=== PATIENT | female | born 1990 | race Caucasian/White ===

== ENCOUNTER → 2016-10-29 | Outpatient (CLI) | payer OTHER | LOC: RAD 07:24 | PROVIDERS: ATTEND Otolaryngology | DX: Z09 Encounter for follow-up examination after completed treatment for conditions other than malignant neoplasm (principal); J32.0 Chronic maxillary sinusitis; J32.2 Chronic ethmoidal sinusitis | CPT/HCPCS: 70486 ==

== ENCOUNTER 2016-11-05 12:31 | Emergency (ER) | payer SELFPAY ==
[2016-11-05] MEDS ORDERED: KETOROLAC TROMETHAMINE INJ/PF 30 MG/1 ML SDV IV ONE (13:11)
[2016-11-05] MEDS ORDERED: ONDANSETRON HCL INJ/PF 4 MG/2 ML SDV IV ONE (13:11)
[2016-11-05] MEDS ORDERED: NORMAL SALINE 1000 ML 1,000 ML IV ONE (13:12)
--- NOTE | 2016-11-05 13:18 | ER Document Report ---
ED Medical Screen (RME) - General Chief Complaint: Near Syncope Stated Complaint: SORE THROAT/VOMITING/HEAD PAIN Notes: I have briefly seen and evaluated this patient in my role as physician in triage. I have initiated orders based on this initial evaluation. Please see my colleague's documentation for complete history, physical, management, diagnosis , and ultimate disposition. My brief evaluation: Patient presents after syncopal episodes morning. She is febrile and states that last night she started feeling unwell. She was little nauseated and had a headache. This morning she woke up and was feeling very lightheaded and nauseated and had a sore throat. She indicates that she took some Motrin and the sore throat improved however she still felt lightheaded and she was walking across kitchen when she passed out. She does not think she hit her head. Since she does not have any worsening of the headache. She says that she feels sore all over but thinks that maybe she felt that way before she passed out. She has never had a syncopal episode before. She denies any chest pain or difficult to breathing. She does have a mild cough. Denies any history of asthma. She is generally healthy. On exam, the patient is alert and oriented in no acute distress vital signs are stable with the exception of tachycardia and fever. Chest is clear and equal bilaterally. Heart rate is tachycardic and rhythm is normal. No murmurs. There is bilateral tonsillar adenopathy with pharyngeal erythema. Patient does have tender cervical anterior nodes. Medical Decision making: Patient is tachycardic and febrile. We'll treat fever and body aches with Toradol and give IV fluids. We will check EKG, orthostatics, chest x-ray and basic labs due to syncopal episode. TRAVEL OUTSIDE OF THE [place] IN LAST 30 DAYS: No - Related Data Allergies/Adverse Reactions: Coconut * [Coconut] Allergy (Verified 11/05/16 13:04) Home Medications: Current Home Medications Escitalopram Oxalate [Lexapro] 20 mg PO DAILY 11/05/16 [History] Multivit with Calcium,Iron,Min [Multiple Vitamins For Women] 1 each PO DAILY [History] Pantoprazole Sodium [Protonix] 40 mg PO DAILY 11/05/16 [History] Past Medical History - Social History Chew tobacco use (# tins/day): No Frequency of alcohol use: None Drug Abuse: None - Past Medical History Cardiac Medical History: Denies: Hx Heart Attack, Hx Hypertension Pulmonary Medical History: Denies: Hx Asthma Neurological Medical History: Denies: Hx Cerebrovascular Accident, Hx Seizures Renal/ Medical History: Denies: Hx Peritoneal Dialysis GI Medical History: Reports: Hx Gastroesophageal Reflux Disease. Denies: Hx Hepatitis, Hx Hiatal Hernia, Hx Ulcer Infectious Medical History: Denies: Hx Hepatitis Past Surgical History: Reports: Hx Section. Denies: Hx Mastectomy, Hx Open Heart Surgery, Hx Pacemaker - Immunizations Hx Diphtheria, Pertussis, Tetanus Vaccination: Yes Physical Exam - Vital signs Vitals: Temp Pulse Resp BP Pulse Ox 101.5 F H 131 H 20 129/82 H 97 11/05/16 12:35 11/05/16 12:35 11/05/16 12:35 11/05/16 12:35 11/05/16 12:35 Course - Vital Signs Vital signs: Temp Pulse Resp BP Pulse Ox 101.5 F H 131 H 20 129/82 H 97 11/05/16 12:35 11/05/16 12:35 11/05/16 12:35 11/05/16 12:35 11/05/16 12:35
[2016-11-05 14:01] LABS: HEMATOCRIT 40.1 % (36.0-47.0); HEMOGLOBIN 13.3 g/dL (12.0-15.5); HGB HCT DIFFERENCE -0.2; MEAN CORPUSCULAR HGB CONC 33.2 g/dL (32.0-36.0); MEAN CORPUSCULAR VOLUME 84 fl (80-97); RED BLOOD COUNT 4.75 10^6/uL (3.72-5.28); RED CELL DISTRIBUTION WIDTH 15.1 % (11.5-14.0); WHITE BLOOD COUNT 21.6 10^3/uL (4.0-10.5)
[2016-11-05 14:09] LABS: ANION GAP 12 (5-19); BAND NEUTROPHILS % (MANUAL) 2 % (3-5); BASOPHILS % (MANUAL) 0 % (0-2); BLOOD UREA NITROGEN 9 mg/dL (7-20); CALCIUM 9.4 mg/dL (8.4-10.2); CARBON DIOXIDE 26 mmol/L (22-30); CHLORIDE 101 mmol/L (98-107); CREATININE RESULT 0.63 mg/dL (0.52-1.25); EOSINOPHILS % (MANUAL) 0 % (0-6); GLUCOSE 119 mg/dL (75-110); LYMPHOCYTES % (MANUAL) 4 % (13-45); POTASSIUM 3.9 mmol/L (3.6-5.0); SODIUM 138.9 mmol/L (137-145); TOTAL CELLS COUNTED 100
[2016-11-05 14:10] LABS: ANISOCYTOSIS SLIGHT; TOXIC GRANULATION SLIGHT
[2016-11-05 15:18] LABS: APPEARANCE,URINE SLIGHTLY-CLOUDY; BILIRUBIN,URINE NEGATIVE (NEGATIVE); GLUCOSE, URINE NEGATIVE (NEGATIVE); KETONES,URINE NEGATIVE (NEGATIVE); LEUKOCYTE ESTERASE,URINE NEGATIVE (NEGATIVE); NITRITE,URINE NEGATIVE (NEGATIVE); PROTEIN,URINE NEGATIVE (NEGATIVE); URINE SPECIFIC GRAVITY 1.012; UROBILINOGEN,URINE NEGATIVE mg/dL (<2.0)
[2016-11-05] MEDS ORDERED: PENICILLIN G BENZATHINE 1.2 MILLION UNIT/2 ML DISP.SYRIN IM ONE (15:32)
[2016-11-05] MEDS ORDERED: IBUPROFEN 800 MG TABLET PO ONE (15:33)
--- NOTE | 2016-11-05 15:41 | ER Document Report ---
ED General - General Chief Complaint: Near Syncope Stated Complaint: SORE THROAT/VOMITING/HEAD PAIN Mode of Arrival: Ambulatory Information source: Patient Notes: 26-year-old female presents with complaints of a sore throat fevers body aches since last night. Patient notes she was here with her daughter right upper respiratory infection last week who she may have gotten sick from being in the hospital. Patient denies any vomiting. Patient missed a mild sore throat notes she has been able to hydrate and has been urinating well with no difficulty TRAVEL OUTSIDE OF THE [place] IN LAST 30 DAYS: No - HPI Onset: Yesterday Onset/Duration: Sudden Quality of pain: Sharp Severity: Mild Pain Level: 1 Associated symptoms: Fever, Sore throat Exacerbated by: Denies Relieved by: Denies Similar symptoms previously: No Recently seen / treated by doctor: No - Related Data Allergies/Adverse Reactions: Coconut * [Coconut] Allergy (Verified 11/05/16 13:04) Home Medications: Current Home Medications Escitalopram Oxalate [Lexapro] 20 mg PO DAILY 11/05/16 [History] Multivit with Calcium,Iron,Min [Multiple Vitamins For Women] 1 each PO DAILY [History] Pantoprazole Sodium [Protonix] 40 mg PO DAILY 11/05/16 [History] Past Medical History - Social History Smoking Status: Never Smoker Cigarette use (# per day): No Chew tobacco use (# tins/day): No Smoking Education Provided: No Frequency of alcohol use: None Drug Abuse: None Family History: Reviewed & Not Pertinent Patient has suicidal ideation: No Patient has homicidal ideation: No - Past Medical History Cardiac Medical History: Denies: Hx Heart Attack, Hx Hypertension Pulmonary Medical History: Denies: Hx Asthma Neurological Medical History: Denies: Hx Cerebrovascular Accident, Hx Seizures Renal/ Medical History: Denies: Hx Peritoneal Dialysis GI Medical History: Reports: Hx Gastroesophageal Reflux Disease. Denies: Hx Hepatitis, Hx Hiatal Hernia, Hx Ulcer Infectious Medical History: Denies: Hx Hepatitis Past Surgical History: Reports: Hx Section. Denies: Hx Mastectomy, Hx Open Heart Surgery, Hx Pacemaker - Immunizations Hx Diphtheria, Pertussis, Tetanus Vaccination: Yes Review of Systems - Review of Systems Notes: REVIEW OF SYSTEMS: CONSTITUTIONAL : admits to fever EENT: admits to sore throat CARDIOVASCULAR: Denies chest pain. Denies palpitations or racing or irregular heart beat. Denies ankle edema. RESPIRATORY: Denies cough, cold, or chest congestion. Denies shortness of breath, difficulty breathing, or wheezing. GASTROINTESTINAL: Denies abdominal pain or distention. Denies nausea, vomiting , or diarrhea. Denies blood in vomitus, stools, or per rectum. Denies black, tarry stools. Denies constipation. GENITOURINARY: Denies difficulty urinating, painful urination, burning, frequency, blood in urine, or discharge. FEMALE GENITOURINARY: Denies vaginal bleeding, heavy or abnormal periods, irregular periods. Denies vaginal discharge or odor. MUSCULOSKELETAL: Denies back or neck pain or stiffness. Denies joint pain or swelling. SKIN: Denies rash, lesions or sores. HEMATOLOGIC : Denies easy bruising or bleeding. LYMPHATIC: Denies swollen, enlarged glands. NEUROLOGICAL: Denies confusion or altered mental status. Denies passing out or loss of consciousness. Denies dizziness or lightheadedness. Denies headache. Denies weakness or paralysis or loss of use of either side. Denies problems with gait or speech. Denies sensory loss, numbness, or tingling. Denies seizures. PSYCHIATRIC: Denies anxiety or stress. Denies depression, suicidal ideation, or homicidal ideation. ALL OTHER SYSTEMS REVIEWED AND NEGATIVE. Dictation was performed using [employer] voice recognition software PHYSICAL EXAMINATION: GENERAL: Well-appearing, well-nourished and in no acute distress. febrile HEAD: Atraumatic, normocephalic. EYES: Pupils equal round and reactive to light, extraocular movements intact, conjunctiva are normal. ENT: Nares patent, oropharynx clear without exudates. Moist mucous membranes. NECK: bilateral tonsillar enlargement, exudative with ulcers , uvula midline, airway patent LUNGS: Breath sounds clear to auscultation bilaterally and equal. No wheezes rales or rhonchi. HEART: tachycardic ABDOMEN: Soft, nontender, nondistended abdomen. No guarding, no rebound. No masses appreciated. Female : deferred Musculoskeletal: Normal range of motion, no pitting or edema. No cyanosis. NEUROLOGICAL: Cranial nerves grossly intact. Normal speech, normal gait. Normal sensory, motor exams PSYCH: Normal mood, normal affect. SKIN: Warm, Dry, normal turgor, no rashes or lesions noted. Physical Exam - Vital signs Vitals: Temp Pulse Resp BP Pulse Ox 101.5 F H 131 H 20 129/82 H 97 11/05/16 12:35 11/05/16 12:35 11/05/16 12:35 11/05/16 12:35 11/05/16 12:35 Course - Re-evaluation Re-evalutation: 11/05/16 15:45 pt noted to be septic secondary to strep pharyngitis. will treat with antibiotics, otherwise pt treated for fever and well appearing. pt is not dehydrated. After performing a Medical Screening Examination, I estimate there is LOW risk for ACUTE CORONARY SYNDROME, RESPIRATORY FAILURE, SEPSIS OR MENINGITIS, thus I consider the discharge disposition reasonable. I have reevaluated this patient multiple times and no significant life threatening changes are noted. The patient and I have discussed the diagnosis and risks, and we agree with discharging home with close follow-up. We also discussed returning to the Emergency Department immediately if new or worsening symptoms occur. We have discussed the symptoms which are most concerning (e.g., changing or worsening pain, trouble swallowing or breathing, neck stiffness, fever) that necessitate immediate return. - Vital Signs Vital signs: Temp Pulse Resp BP Pulse Ox 101.5 F H 131 H 20 129/82 H 97 11/05/16 12:35 11/05/16 12:35 11/05/16 12:35 11/05/16 12:35 11/05/16 12:35 - Laboratory Result Diagrams: 11/05/16 13:20 11/05/16 13:20 Laboratory results interpreted by me: 11/05/16 11/05/16 11/05/16 13:20 13:20 13:20 WBC 21.6 H RDW 15.1 H Seg Neuts % (Manual) 86 H Band Neutrophils % 2 L Lymphocytes % (Manual) 4 L Abs Neuts (Manual) 19.0 H Abs Monocytes (Manual) 1.5 H Glucose 119 H Urine Blood MODERATE H Discharge - Discharge Clinical Impression: Strep pharyngitis, Tachycardia Fever Qualifiers: Fever type: unspecified Qualified Code(s): R50.9 - Fever, unspecified Condition: Stable Disposition: HOME, SELF-CARE Instructions: Strep Throat ([facility]) Additional Instructions: Follow up with your physician tomorrow for further care or return to the ED IMMEDIATELY if symptoms worsen or new concerns occur. If you cannot afford to follow up with your primary care physician a list of low cost clinics have been provided at the end of your discharge papers as well. Prescriptions: Prednisone [Deltasone 20 mg Tablet] 3 tab PO DAILY 5 Days
[2016-11-05 16:05] VITALS: BP 128/76
--- NOTE | 2016-11-05 16:24 | EKG REPORT ---
SEVERITY:- NORMAL ECG - SINUS RHYTHM : Confirmed by: Jonn Santacruz MD 05-Nov-2016 16:24:27
== END 2016-11-05 15:57 | disposition home or self-care (01) ==
LOC: ER 12:31
DX: J02.0 Streptococcal pharyngitis (principal); R00.0 Tachycardia, unspecified; R50.9 Fever, unspecified; M79.1 Myalgia; R51 Headache; R11.10 Vomiting, unspecified; R55 Syncope and collapse
CPT/HCPCS: 99284; 96372; 36415; 87880; 85025; 81025; 80048; 81001; 71020; 93005; 93010; J0561

== ENCOUNTER → 2017-01-07 | Day surgery (SDC) | payer OTHER ==
--- NOTE | 2017-01-07 16:37 | RADIOLOGY REPORT (SQ) ---
EXAM DESCRIPTION: ARTHRO SHOULDER INJECTION; FLUORO/NEEDLE PLACEMENT COMPLETED DATE/TIME: 01/07/2017 2:24 pm REASON FOR STUDY: SUPERIOR GLENOID LABRUM LESION OF L SHOULDER S43.432S SUPERIOR GLENOID LABRUM LES ION OF LEFT SHOULDER, SE COMPARISON: None. FLUOROSCOPY TIME: 5 seconds 2 digital radiographic images saved to PACS. LIMITATIONS: None. PROCEDURE: Procedure, risks, benefits and alternatives explained to patient who then gave written co nsent. The posterior left shoulder was marked and a time out was called for correct procedure verific ation. Posterior entry site marked using fluoroscopic guidance. Shoulder prepped and draped using s terile technique. Local anesthesia achieved using 4 mL of 1% lidocaine injection. 22 spinal needle introduced into the joint space under direct fluoroscopic visualization. Non-ionic contrast instilled to confirm intra-articular position. Dilute gadolinium solution then injected. Needle removed and e ntry site covered with sterile bandage. No immediate complications noted. TECHNIQUE: Digital images acquired during fluoroscopy and stored on PACS. Patient immediately take n to the MR suite for additional imaging. INJECTION LOCATION: Left posterior glenohumeral joint CONTRAST TYPE AND AMOUNT: 1 mL of Isovue-300 was injected to confirm intra-articular needle placement followed by 7 mL of dilute ProHance gadolinium for MR arthrogram IMPRESSION: SUCCESSFUL NEEDLE PLACEMENT AND INJECTION FOR LEFT SHOULDER MR ARTHROGRAM USING POSTERIO R APPROACH. COMMENT: Quality ID [id number]: Final reports for procedures using fluoroscopy that document radiation exp osure indices, or exposure time and number of fluorographic images (if radiation exposure indices are not available) TECHNICAL DOCUMENTATION: JOB ID: [id number] [employer]- All Rights Reserved
--- NOTE | 2017-01-08 11:55 | RADIOLOGY REPORT (SQ) ---
EXAM DESCRIPTION: MRI LT UPPER JOINT WITH COMPLETED DATE/TIME: 01/07/2017 3:33 pm REASON FOR STUDY: SUPERIOR GLENOID LABRUM LESION OF L SHOULDER S43.432S SUPERIOR GLENOID LABRUM LES ION OF LEFT SHOULDER, SE COMPARISON: None. TECHNIQUE: Left shoulder images acquired and stored on PACS. Oblique coronal, oblique sagittal, and axial imaging to include fat sensitive sequences as T1, water sensitive sequences as FST2/STIR, and c ontrast sensitive sequences as FST1. LIMITATIONS: Motion artifact on multiple pulse sequences. FINDINGS: JOINT DISTENTION: Adequate distention of the joint for interpretation. No leakage the inj ected gadolinium contrast into the subacromial/ subdeltoid bursa. BONE MARROW AND CORTEX: Tiny subcortical cyst posterior left humeral head greater tuberosity axial im age 7. No bulky bony spurring. No marrow signal abnormalities worrisome for occult fracture or aggr essive marrow replacement process AC JOINT: Type 4 acromion. Mild acromioclavicular joint arthropathy without narrowing of the subacrom ial space. GLENOHUMERAL JOINT: No subluxation or dislocation. No focal chondral defects or reactive bone changes . ROTATOR CUFF: Intact without significant tendinopathy, partial or full-thickness tears. No peritendin itis. LABRUM AND BICEPS LABRAL COMPLEX: Normal signal in the rotator interval without tear of the superior glenohumeral ligament. Superior labrum, intra-articular long head biceps intact. Distal biceps in no rmal anatomic location in bicipital groove. No paralabral cysts. INFERIOR LABRAL COMPLEX: Bony glenoid and labrum intact. IGHL intact without thickening or tear. No p aralabral cysts. ADJACENT SOFT TISSUES: No masses or nodes. OTHER: No other significant finding. 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 OTHERWISE, UNREMARKABLE MRI ARTHROGRAM OF THE LEFT SHOULDER. TECHNICAL DOCUMENTATION: JOB ID: [id number] [employer]- All Rights Reserved
== END ==
LOC: RAD 13:13
PROVIDERS: ATTEND Family Medicine
PROC: BP09ZZZ Plain Radiography of Left Shoulder (ICD-10-PCS; principal; 2017-01-07)
DX: S43.432S Superior glenoid labrum lesion of left shoulder, sequela (principal); X58.XXXS Exposure to other specified factors, sequela
CPT/HCPCS: 73222; 77002; 23350; A9576

== ENCOUNTER 2017-06-05 18:07 | Emergency (ER) | payer SELFPAY ==
[2017-06-05] MEDS ORDERED: DIPHENHYDRAMINE HCL 25 MG CAPSULE PO ONE (19:08)
[2017-06-05] MEDS ORDERED: NAPROXEN 250 MG TABLET PO ONE (19:08)
[2017-06-05] MEDS ORDERED: PROCHLORPERAZINE MALEATE 10 MG TABLET PO ONE (19:08)
--- NOTE | 2017-06-05 19:10 | ER Document Report ---
ED Medical Screen (RME) - General Chief Complaint: Headache Stated Complaint: HEADACHE Time Seen by Provider: 06/05/17 19:06 Notes: 27-year-old female patient complains of left earache for 1 week. We will get this morning with migraine headache. Now has fever, chills, sensitive to light and sound, back pain, headache and body aches. I have greeted and performed a rapid initial assessment of this patient. A comprehensive ED assessment and evaluation of the patient, analysis of test results and completion of the medical decision making process will be conducted by additional ED providers. TRAVEL OUTSIDE OF THE [place] IN LAST 30 DAYS: No - Related Data Allergies/Adverse Reactions: Coconut * [Coconut] Allergy (Verified 06/05/17 18:15) Past Medical History - Past Medical History Cardiac Medical History: Denies: Hx Heart Attack, Hx Hypertension Pulmonary Medical History: Denies: Hx Asthma Neurological Medical History: Denies: Hx Cerebrovascular Accident, Hx Seizures Renal/ Medical History: Denies: Hx Peritoneal Dialysis GI Medical History: Reports: Hx Gastroesophageal Reflux Disease. Denies: Hx Hepatitis, Hx Hiatal Hernia, Hx Ulcer Infectious Medical History: Denies: Hx Hepatitis Past Surgical History: Reports: Hx Section. Denies: Hx Mastectomy, Hx Open Heart Surgery, Hx Pacemaker - Immunizations Hx Diphtheria, Pertussis, Tetanus Vaccination: Yes Physical Exam - Vital signs Vitals: Temp Pulse Resp BP Pulse Ox 99.9 F 96 16 122/56 L 100 06/05/17 18:15 06/05/17 18:15 06/05/17 18:15 06/05/17 18:15 06/05/17 18:15 Course - Vital Signs Vital signs: Temp Pulse Resp BP Pulse Ox 99.9 F 96 16 122/56 L 100 06/05/17 18:15 06/05/17 18:15 06/05/17 18:15 06/05/17 18:15 06/05/17 18:15
--- NOTE | 2017-06-05 20:16 | ER Document Report ---
HPI - HPI Pain Level: 2 Notes: Patient is a 27-year-old female who presents the ED complaining of low-grade temp, right ear pain, body ache, and CHURCH. Patient states that the body aches, CHURCH , and low-grade temp started today, but the right ear pain has been ongoing for about 1 week. Patient states that the pain does not radiate. Patient states that she has history of migraines and this is like 1 of her typical migraines without any neck pain or stiffness. She is still eating and drinking without any difficulties. She still urinating normally and having normal bowel movements. Patient denies any significant past medical history aside from sinus surgery last year. She denies any drug allergies. Pt is currently on her menstrual period and has had her tubes tied. Pt denies any sexual activity. No other concerns or complaints. Denies any head injury, neck pain, changes in vision/speech/mentation/hearing, URI, sore throat, chest pain, palpitations, syncope, cough, shortness of breath, wheeze, dyspnea, abdominal pain, nausea/vomiting/diarrhea, urinary retention, dysuria, hematuria, loss of control of bowel or bladder, numbness/tingling, saddle anesthesia, muscle paralysis/weakness, or rash. No insect bite or recent illness. Pt states that she has does not go outside in the boat[place] or around any animals. - ROS Notes: REVIEW OF SYSTEMS: CONSTITUTIONAL : see hpi. EENT: see hpi. Denies nasal or sinus congestion or discharge. Denies throat , tongue, or mouth swelling or difficulty swallowing. CARDIOVASCULAR: Denies chest pain. Denies palpitations or racing or irregular heart beat. Denies ankle edema. RESPIRATORY: Denies cough, cold, or chest congestion. Denies shortness of breath, difficulty breathing, or wheezing. GASTROINTESTINAL: Denies abdominal pain or distention. Denies nausea, vomiting , or diarrhea. Denies blood in vomitus, stools, or per rectum. Denies black, tarry stools. Denies constipation. GENITOURINARY: Denies difficulty urinating, painful urination, burning, frequency, blood in urine, or discharge. FEMALE GENITOURINARY: see hpi. Denies vaginal discharge or odor. MUSCULOSKELETAL: Denies back or neck pain or stiffness. Denies joint pain or swelling. SKIN: Denies rash, lesions or sores. NEUROLOGICAL: see hpi. Denies confusion or altered mental status. Denies passing out or loss of consciousness. Denies dizziness or lightheadedness. Denies weakness or paralysis or loss of use of either side. Denies problems with gait or speech. Denies sensory loss, numbness, or tingling. Denies seizures. ALL OTHER SYSTEMS REVIEWED AND NEGATIVE. Dictation was performed using [employer] voice recognition software - REPRODUCTIVE [employer]roductive: REPORTS: : - DERM Skin Color: Normal Past Medical History - Social History Smoking Status: Never Smoker Family History: Reviewed & Not Pertinent Patient has suicidal ideation: No Patient has homicidal ideation: No - Past Medical History Cardiac Medical History: Denies: Hx Heart Attack, Hx Hypertension Pulmonary Medical History: Denies: Hx Asthma Neurological Medical History: Denies: Hx Cerebrovascular Accident, Hx Seizures Renal/ Medical History: Denies: Hx Peritoneal Dialysis GI Medical History: Reports: Hx Gastroesophageal Reflux Disease. Denies: Hx Hepatitis, Hx Hiatal Hernia, Hx Ulcer Infectious Medical History: Denies: Hx Hepatitis Past Surgical History: Reports: Hx Section. Denies: Hx Mastectomy, Hx Open Heart Surgery, Hx Pacemaker - Immunizations Hx Diphtheria, Pertussis, Tetanus Vaccination: Yes Vertical Provider Document - CONSTITUTIONAL Agree With Documented VS: Yes Notes: PHYSICAL EXAMINATION: GENERAL: Well-appearing, well-nourished and in no acute distress. A&Ox4 HEAD: Atraumatic, normocephalic. Non-tender. EYES: Pupils equal round and reactive to light, extraocular movements intact, sclera anicteric, conjunctiva are normal. No raccoon eyes/entrapment ENT: EAC clear b/l. TM's intact b/l without erythema, fluid, or perforation. Nares patent and without discharge. oropharynx clear without exudates. No tonsilar hypertrophy or erythema. Moist mucous membranes. No sinus tenderness. No hemotympanum/CSF discharge. NECK: Normal range of motion, supple without lymphadenopathy. No rigidity. No midline tenderness. Kernig/brudzinski negative. LUNGS: Breath sounds clear to auscultation bilaterally and equal. No wheezes rales or rhonchi. HEART: Regular rate and rhythm without murmurs, rubs, gallops. ABDOMEN: Soft, nontender, nondistended abdomen. No guarding, no rebound. No masses appreciated. Normal bowel sounds present. No CVA tenderness bilaterally. Musculoskeletal: Ext b/l: FROM to passive/active. Strength 5+/5. No deficits noted. No bony tenderness of extremities. Back: FROM to passive/active. Strength 5+/5. No vertebral point tenderness, stepoffs, or deformities. No other bony tenderness or ecchymosis. Extremities: No cyanosis, clubbing, or edema b/l. Peripheral pulses 2+. Capillary refill less than 2 seconds. NEUROLOGICAL: MMSE intact. Cranial nerves grossly intact. Normal speech, normal gait. Normal sensory, motor exams. PSYCH: Normal mood, normal affect. SKIN: Warm, Dry, normal turgor, no rashes or lesions noted. - INFECTION CONTROL TRAVEL OUTSIDE OF THE [place] IN LAST 30 DAYS: No - RESPIRATORY O2 Sat by Pulse Oximetry: 100 Course - Re-evaluation Re-evalutation: 06/05/17 20:20 Patient is currently an afebrile, well-hydrated, 27-year-old female who presents to the ED with body ache, CHURCH, and suspected viral syndrome based on H& P today. Vitals are stable. PE is otherwise unremarkable for any focal neurological deficits. At this time, I cannot localize a source for infection. It is possible that the patient may develop more specific symptoms the upcoming days. Patient was given medication for her headache upon arrival about 1 hour ago, and patient states that her headache has improved since then. Patient is tolerating p.o. without any difficulties. 06/05/17 21:27 Patient clinically appears stable to go home. Patient states her headache is almost totally resolved and would like to go home. Patient is tolerating p.o. Patient is ambulating without any difficulties. Patient has not had any worsening symptoms. Rapid influenza was negative. Advised patient to monitor symptoms closely. I have a low suspicion for any systemic emergent condition at this time including but not limited to sepsis, meningitis, severe dehydration , respiratory compromise. Conservative measures for symptoms. Recheck with your PCM in 2-3 days. Return to the ED with any worsening/concerning symptoms otherwise as reviewed in discharge. Patient is in agreement. - Vital Signs Vital signs: Temp Pulse Resp BP Pulse Ox 99.9 F 96 16 122/56 L 100 06/05/17 18:15 06/05/17 18:15 06/05/17 18:15 06/05/17 18:15 06/05/17 18:15 Discharge - Discharge Clinical Impression: Viral syndrome Headache Qualifiers: Headache type: unspecified Headache chronicity pattern: acute headache Intractability: not intractable Qualified Code(s): R51 - Headache Condition: Stable Disposition: HOME, SELF-CARE Instructions: Headache ([facility]), Viral Syndrome ([facility]) Additional Instructions: Maintain adequate fluid intake tylenol/ibuprofen as needed over the counter cold medication as needed for symptoms Humidified air may help for any development of cough F/u: with your PCM in 2-3 days for a recheck Return to the ED with any worsening symptoms and/or development of fever, worsening headache, drooling, hoarseness, neck stiffness/pain, chest pain, palpitations, syncope, shortness of breath, trouble breathing, abdominal pain, n /v/d, blood in stool/urine, loss of control of bowel/bladder, urinary retention , muscle weakness/paralysis, numbness/tingling, or other worsening symptoms that are concerning to you. Referrals: [facility] [Provider Group] - Follow up as needed [facility] [Provider Group] - Follow up as needed
[2017-06-05 21:34] VITALS: BP 118/52
== END 2017-06-05 21:33 | disposition home or self-care (01) ==
LOC: ER 18:07
DX: B34.9 Viral infection, unspecified (principal); R51 Headache; R50.9 Fever, unspecified; H92.01 Otalgia, right ear; M79.1 Myalgia
CPT/HCPCS: 99283; 87804; S0183

== ENCOUNTER 2017-06-06 16:19 | Emergency (ER) | payer SELFPAY ==
[2017-06-06] MEDS ORDERED: DEXAMETHASONE SOD PHOS INJ 10 MG/1 ML VIAL IV ONE (16:48)
[2017-06-06] MEDS ORDERED: KETOROLAC TROMETHAMINE INJ/PF 30 MG/1 ML SDV IV ONE (16:48)
--- NOTE | 2017-06-06 16:53 | ER Document Report ---
HPI - HPI Pain Level: 2 Notes: Patient is a 27-year-old female who presents the ED complaining of a lingering headache and a development of a sore throat that began this morning. I did evaluate this patient yesterday and diagnosed with a viral syndrome at that time and told patient that if symptoms develop to return for further evaluation. Patient states that overall her headache is much improved from yesterday, she no longer has the fevers or the body aches. Patient states that she did develop a sore throat and does have pain with swallowing, but is still eating and drinking without difficulties. patient does have a decreased appetite however. Patient states that the last time she had strep throat her symptomatology progressed similarly. Patient states that she is still urinating normally and having normal bowel movements. No other concerns or complaints at this time. Denies any fever, neck pain, URI, chest pain, palpitations, syncope, cough, shortness of breath, wheeze, dyspnea, abdominal pain, nausea/vomiting/diarrhea, urinary retention, dysuria, hematuria, or rash. - ROS Notes: REVIEW OF SYSTEMS: CONSTITUTIONAL : Denies fever, chills, or sweats. Denies recent illness. EENT: see hpi CARDIOVASCULAR: Denies chest pain. Denies palpitations or racing or irregular heart beat. Denies ankle edema. RESPIRATORY: Denies cough, cold, or chest congestion. Denies shortness of breath, difficulty breathing, or wheezing. GASTROINTESTINAL: Denies abdominal pain or distention. Denies nausea, vomiting , or diarrhea. GENITOURINARY: Denies difficulty urinating, painful urination, burning, frequency, blood in urine, or discharge. MUSCULOSKELETAL: Denies back or neck pain or stiffness. Denies joint pain or swelling. SKIN: Denies rash, lesions or sores. NEUROLOGICAL: see hpi. Denies confusion or altered mental status. Denies passing out or loss of consciousness. Denies dizziness or lightheadedness. Denies weakness or paralysis or loss of use of either side. Denies problems with gait or speech. Denies sensory loss, numbness, or tingling. ALL OTHER SYSTEMS REVIEWED AND NEGATIVE. Dictation was performed using [employer] voice recognition software - REPRODUCTIVE Reproductive: REPORTS: : - DERM Skin Color: Normal Past Medical History - Social History Smoking Status: Unknown if Ever Smoked Family History: Reviewed & Not Pertinent Patient has suicidal ideation: No Patient has homicidal ideation: No - Past Medical History Cardiac Medical History: Denies: Hx Heart Attack, Hx Hypertension Pulmonary Medical History: Denies: Hx Asthma Neurological Medical History: Denies: Hx Cerebrovascular Accident, Hx Seizures Renal/ Medical History: Denies: Hx Peritoneal Dialysis GI Medical History: Reports: Hx Gastroesophageal Reflux Disease. Denies: Hx Hepatitis, Hx Hiatal Hernia, Hx Ulcer Infectious Medical History: Denies: Hx Hepatitis Past Surgical History: Reports: Hx Section. Denies: Hx Mastectomy, Hx Open Heart Surgery, Hx Pacemaker - Immunizations Hx Diphtheria, Pertussis, Tetanus Vaccination: Yes Vertical Provider Document - CONSTITUTIONAL Agree With Documented VS: Yes Notes: PHYSICAL EXAMINATION: GENERAL: Well-appearing, well-nourished and in no acute distress. HEAD: Atraumatic, normocephalic. EYES: Pupils equal round and reactive to light, extraocular movements intact, sclera anicteric, conjunctiva are normal. ENT: EAC clear b/l. TM's intact b/l without erythema, fluid, or perforation. Nares patent and without discharge. oropharynx mild erythema without exudates. 2+ tonsilar hypertrophy with erythema & scant exudates b/l. No palatine shift. Uvula midline. No tongue protrusion. Moist mucous membranes. No sinus tenderness. NECK: Normal range of motion, supple with anterior cerv lymphadenopathy. No rigidity/meningismus. LUNGS: Breath sounds clear to auscultation bilaterally and equal. No wheezes rales or rhonchi. HEART: Regular rate and rhythm without murmurs, rubs, gallops. ABDOMEN: Soft, nontender, nondistended abdomen. No guarding, no rebound. No masses appreciated. Normal bowel sounds present. No CVA tenderness bilaterally. No hepatosplenomegaly. NEUROLOGICAL: Normal speech, normal gait. Normal sensory, motor exams PSYCH: Normal mood, normal affect. SKIN: Warm, Dry, normal turgor, no rashes or lesions noted. - INFECTION CONTROL TRAVEL OUTSIDE OF THE [place] IN LAST 30 DAYS: No - RESPIRATORY O2 Sat by Pulse Oximetry: 100 Course - Re-evaluation Re-evalutation: 06/06/17 17:52 Patient is an afebrile, well-hydrated, 27-year-old female who presents the ED with acute pharyngitis, suspect viral at this time. Vitals are stable. PE is otherwise unremarkable. CBC, CMP, mono were all unremarkable. Rapid strep test was also negative with a throat culture pending. Patient is tolerating p.o. without any difficulties. Decadron and Toradol was given IV today. Recommend conservative measures for symptoms as reviewed. Recheck with your PCM in 3-5 days. Return to the ED with any worsening/concerning symptoms otherwise as reviewed in discharge. Patient is in agreement. - Vital Signs Vital signs: Temp Pulse Resp BP Pulse Ox 99.3 F 79 16 119/73 100 06/06/17 16:30 06/06/17 16:30 06/06/17 16:30 06/06/17 16:30 06/06/17 16:30 - Laboratory Result Diagrams: 06/06/17 17:00 06/06/17 17:00 Discharge - Discharge Clinical Impression: Acute pharyngitis Qualifiers: Pharyngitis/tonsillitis etiology: unspecified etiology Qualified Code(s): J02.9 - Acute pharyngitis, unspecified Condition: Stable Disposition: HOME, SELF-CARE Instructions: Sore Throat ([facility]) Additional Instructions: Maintain adequate fluid intake Salt water gargles, throat sprays, mouthwash rinse, peroxide gargles tylenol/ibuprofen as needed over the counter cold medication as needed for symptoms F/u: with your PCM in 3-5 days for a recheck Consider consult with ENT for ongoing/worsening symptoms Return to the ED with any fever, worsening pain, chest pain, neck pain/stiffness , shortness of breath, cough, drooling, trouble swallowing/breathing, abdominal pain, n/v/d, rash, or worsening/concerning symptoms otherwise. Referrals: [facility] [Provider Group] - Follow up as needed [facility] [Provider Group] - Follow up as needed
[2017-06-06 17:33] LABS: ABSOLUTE LYMPHOCYTES (AUTO) 1.5 10^3/uL (0.5-4.7); ABSOLUTE MONOCYTES (AUTO) 0.9 10^3/uL (0.1-1.4); BASOPHILS % (AUTO) 0.3 % (0-2); EOSINOPHILS % (AUTO) 0.4 % (0-6); HEMOGLOBIN 13.2 g/dL (12.0-15.5); HGB HCT DIFFERENCE 0.6; LYMPHOCYTES % (AUTO) 17.8 % (13-45); MEAN CORPUSCULAR HEMOGLOBIN 28.9 pg (27.0-33.4); MEAN CORPUSCULAR HGB CONC 33.7 g/dL (32.0-36.0); MEAN CORPUSCULAR VOLUME 86 fl (80-97); MONOCYTES % (AUTO) 11.1 % (3-13); RED BLOOD COUNT 4.55 10^6/uL (3.72-5.28); RED CELL DISTRIBUTION WIDTH 13.7 % (11.5-14.0); SEGMENTED NEUTROPHILS % (AUTO) 70.4 % (42-78); WHITE BLOOD COUNT 8.5 10^3/uL (4.0-10.5)
[2017-06-06 17:46] LABS: ALANINE AMINOTRANSFERASE 41 U/L (9-52); ALBUMIN 4.1 g/dL (3.5-5.0); ALKALINE PHOSPHATASE 69 U/L (38-126); ANION GAP 12 (5-19); ASPARTATE AMINO TRANSFERASE 39 U/L (14-36); BILIRUBIN,DIRECT 0.3 mg/dL (0.0-0.4); BILIRUBIN,TOTAL 0.3 mg/dL (0.2-1.3); BLOOD UREA NITROGEN 10 mg/dL (7-20); CALCIUM 8.8 mg/dL (8.4-10.2); CARBON DIOXIDE 25 mmol/L (22-30); CHLORIDE 106 mmol/L (98-107); CREATININE RESULT 0.69 mg/dL (0.52-1.25); GLUCOSE 84 mg/dL (75-110); POTASSIUM 4.1 mmol/L (3.6-5.0); SODIUM 142.9 mmol/L (137-145); TOTAL PROTEIN 6.9 g/dL (6.3-8.2)
[2017-06-06 19:11] VITALS: BP 117/65
== END 2017-06-06 19:10 | disposition home or self-care (01) ==
LOC: ER 16:19
DX: J02.9 Acute pharyngitis, unspecified (principal); R51 Headache; R63.0 Anorexia
CPT/HCPCS: 99283; 96374; 96375; 36415; 87070; 87880; 85025; 86308; 80053; J1885; J1100

== ENCOUNTER 2017-08-06 11:58 | Emergency (ER) | payer SELFPAY ==
[2017-08-06 12:44] LABS: APPEARANCE,URINE SLIGHTLY-CLOUDY; BILIRUBIN,URINE NEGATIVE (NEGATIVE); COLOR,URINE YELLOW; GLUCOSE, URINE NEGATIVE (NEGATIVE); KETONES,URINE NEGATIVE (NEGATIVE); LEUKOCYTE ESTERASE,URINE NEGATIVE (NEGATIVE); NITRITE,URINE NEGATIVE (NEGATIVE); PROTEIN,URINE NEGATIVE (NEGATIVE); URINE SPECIFIC GRAVITY 1.017; UROBILINOGEN,URINE NEGATIVE mg/dL (<2.0)
--- NOTE | 2017-08-06 13:23 | ER Document Report ---
ED GI/ - General Chief Complaint: Pain With Urination Stated Complaint: PAINFUL URINATION Time Seen by Provider: 08/06/17 12:53 Mode of Arrival: Ambulatory Information source: Patient Notes: 27-year-old female presents to ED for complaint of burning and pain with urination 1-1/2 weeks. She states she also has pelvic pain with a white discharge. She states she has a frequent yeast infections and she has already tried Monistat with no relief of the discomfort. She states her last menstrual period was 07/31/2017. TRAVEL OUTSIDE OF THE [place] IN LAST 30 DAYS: No - HPI Patient complains to provider of: Pelvic pain, Vaginal discharge, Vaginal pain Onset: Other - 1-1/2 weeks Timing/Duration: Intermittent Quality of pain: Burning Severity at maximum: Moderate Severity in ED: Moderate Pain Level: 2 Location: Pelvis, Vaginal Vaginal bleeding (Compared to normal period): None LMP: 07/31/2017 Sexual history: Active Associated symptoms: Vaginal discharge, Other - Burning with urination and pelvic pain Exacerbated by: Other - Urination Relieved by: Denies Similar symptoms previously: Yes Recently seen / treated by doctor: No - Related Data Allergies/Adverse Reactions: Coconut * [Coconut] Allergy (Verified 06/06/17 17:11) Past Medical History - General Information source: Patient - Social History Smoking Status: Former Smoker Cigarette use (# per day): No Chew tobacco use (# tins/day): No Smoking Education Provided: No Frequency of alcohol use: Rare Drug Abuse: None 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 denies: CAD, CVA, Malignancy Patient has suicidal ideation: No Patient has homicidal ideation: No - Past Medical History Cardiac Medical History: Reports: None Pulmonary Medical History: Reports: None EENT Medical History: Reports: Nose - Frequent sinusitis Neurological Medical History: Reports: None Endocrine Medical History: Reports: None Renal/ Medical History: Reports: Hx Ovarian Cysts Malignancy Medical History: Reports: None GI Medical History: Reports: Hx Gastroesophageal Reflux Disease Musculoskeltal Medical History: Reports None Skin Medical History: Reports None Psychiatric Medical History: Reports: Hx Anxiety Traumatic Medical History: Reports: None Infectious Medical History: Reports: None Past Surgical History: Reports: Hx Section - 2, Hx Tubal Ligation - Immunizations Hx Diphtheria, Pertussis, Tetanus Vaccination: Yes Review of Systems - Review of Systems Constitutional: No symptoms reported EENT: No symptoms reported Cardiovascular: No symptoms reported Respiratory: No symptoms reported Gastrointestinal: No symptoms reported Genitourinary: Burning Female Genitourinary: Vaginal discharge, Other - Pelvic pain left Musculoskeletal: No symptoms reported Skin: No symptoms reported Hematologic/Lymphatic: No symptoms reported Neurological/Psychological: No symptoms reported -: Yes All other systems reviewed and negative Physical Exam - Vital signs Vitals: Temp Pulse Resp BP Pulse Ox 98.4 F 58 L 16 116/71 99 08/06/17 12:10 08/06/17 12:10 08/06/17 12:10 08/06/17 12:10 08/06/17 12:10 Interpretation: Normal - General General appearance: Appears well, Alert - HEENT Head: Normocephalic, Atraumatic Eyes: Normal Pupils: PERRL - Respiratory Respiratory status: No respiratory distress Chest status: Nontender Breath sounds: Normal Chest palpation: Normal - Cardiovascular Rhythm: Regular Heart sounds: Normal auscultation Murmur: No - Abdominal Inspection: Normal Distension: No distension Bowel sounds: Normal Tenderness: Nontender Organomegaly: No organomegaly - Genitourinary External exam: Normal Speculum exam: Cervix closed, Vaginal discharge Vaginal bleeding: None Bimanuel exam: Adnexal tenderness - Left. No: Cervical motion tender - Back Back: Normal, Nontender - Extremities General upper extremity: Normal inspection, Nontender, Normal color, Normal ROM , Normal temperature General lower extremity: Normal inspection, Nontender, Normal color, Normal ROM , Normal temperature, Normal weight bearing. No: Marlen's sign - Neurological Neuro grossly intact: Yes Cognition: Normal Orientation: AAOx4 [place] Coma Scale Eye Opening: Spontaneous [place] Coma Scale Verbal: Oriented Aj Coma Scale Motor: Obeys Commands Aj Coma Scale Total: 15 Speech: Normal Motor strength normal: LUE, RUE, LLE, RLE Sensory: Normal - Psychological Associated symptoms: Normal affect, Normal mood - Skin Skin Temperature: Warm Skin Moisture: Dry Skin Color: Normal Course - Re-evaluation Re-evalutation: 08/06/17 14:33 Patient's UA was negative her wet mount was positive for bacterial vaginosis and she was did not wait for the GC and chlamydia. Patient was treated with azithromycin, Rocephin, and Flagyl. Patient was discharged home with prescription for Flagyl. Patient to follow-up with her primary doctor. Patient was instructed to call in 2 hours for the results of her GC and chlamydia. 08/06/17 17:33 Patient called back as she was instructed she has been informed she has chlamydia. She states she will call her partner and let him know. - Vital Signs Vital signs: Temp Pulse Resp BP Pulse Ox 98.4 F 64 16 124/78 100 08/06/17 12:10 08/06/17 15:13 08/06/17 15:13 08/06/17 15:13 08/06/17 15:13 - Laboratory Laboratory results interpreted by me: 08/06/17 13:21 Chlamydia DNA (PCR) DETECTED H Discharge - Discharge Clinical Impression: Bacterial vaginitis Vaginitis Qualifiers: Chronicity: acute Qualified Code(s): N76.0 - Acute vaginitis Condition: Stable Disposition: HOME, SELF-CARE Additional Instructions: VAGINITIS: Your exam shows that you have vaginitis, a vaginal infection. The infection can be caused by a many different organisms, including trichomonas or Gardnerella. The usual symptoms are vaginal irritation and discharge. The treatment is usually antibiotics such as Flagyl. Laboratory tests can determine which germ is responsible. Use the medication as prescribed. Because this infection can be transmitted sexually, your sexual partner may need to be checked and treated also. If your physician has not discussed this with you, please check before resuming sexual relations. If a culture shows gonorrhea or chlamydia, the infection must be reported to the health department. Call the doctor if you develop pelvic pain, fever, or problems with urination, or if you don't improve as expected. VAGINOSIS, BACTERIAL: Your exam shows you have bacterial vaginosis. This condition is due to an overgrowth of bacteria in the vagina. Symptoms may include vaginal itching or pain, a smelly discharge, and sometimes burning with urination. Normally this is not transmitted by sexual contact. Vaginosis can be treated with oral or topical antibiotics. Metronidazole ( Flagyl) pills are usually effective. Topical vaginal creams include Cleocin and Metro-Gel. You should avoid sexual contact until your symptoms are all better. Call the doctor if you develop pelvic pain, fever, or problems with urination, or if you don't improve as expected. CEPHALOSPORINS: An antibiotic of the cephalosporin class has been prescribed. This type of antibiotic covers a wide variety of infections, including those of the skin, lungs, middle ear, and urinary tract. This antibiotic is somewhat similar to the penicillin family. In rare cases , a person who is allergic to penicillin will also be allergic to this medication. If you have had a severe allergic reaction to penicillin, and have not taken this antibiotic since that time, notify your doctor. Antibiotics which cover many germs ("broad spectrum" antibiotics) are more likely to cause diarrhea or "yeast" infections. Women prone to vaginal yeast problems may suffer an attack after taking this antibiotic. In infants, oral thrush (white spots "stuck" on the cheek) or yeast diaper rash may result. See your doctor if these problems occur. Call the doctor at once if you develop hives, itching, shortness of breath , or lightheadedness. AZITHROMYCIN: Azithromycin (Zithromax) is a broad spectrum antibiotic in the same class as erythromycin. It can treat a variety of bacterial infections, but is most frequently used for respiratory infections. Azithromycin is extremely long-lasting. It accumulates in body tissues and continues to kill bacteria for many days. In order to improve absorption, Azithromycin should be taken at least one hour before or two hours after a meal. It does not have the same strong tendency to upset the stomach as erythromycin and is usually very well tolerated. Patients who have had a rash or other true allergic reactions to erythromycin should not take this medication. Call if you develop gastrointestinal distress, severe diarrhea, rash, hives, itching, or shortness of breath. METRONIDAZOLE: Metronidazole (Flagyl) has been prescribed. This medication is used to kill a type of bacteria called anaerobes, and protozoan parasites such as trichomonas and Giardia. Flagyl often causes a metallic taste in the mouth and mild nausea. Do not use alcohol in any form with Flagyl (including alcohol in medication elixirs). Flagyl interacts with alcohol to cause flushing, palpitations, headache, stomach cramps, and vomiting. Do not use Flagyl if you are taking Antabuse (disulfiram). Call the doctor at once if you develop rash, shortness of breath, itching, or lightheadedness. FOLLOW-UP CARE: If you have been referred to a physician for follow-up care, call the physician s office for an appointment as you were instructed or within the next two days. If you experience worsening or a significant change in your symptoms, notify the physician immediately or return to the Emergency Department at any time for re-evaluation. Prescriptions: Metronidazole [Flagyl 500 mg Tablet] 500 mg PO BID #14 tablet Referrals: [facility] [Provider Group] - Follow up as needed
[2017-08-06 13:57] LABS: BACTERIA (WET MOUNT) 3+ BACTERIA SEEN; EPITHELIALS (WET MOUNT) 3+ EPITHELIALS SEEN; RBCS (WET MOUNT) NO RBCS SEEN; T.VAGINALIS (WET MOUNT) NO TRICHOMONAS SEEN; WBCS (WET MOUNT) 1+ WBCS SEEN; YEAST (WET MOUNT) NO YEAST SEEN
[2017-08-06] MEDS ORDERED: LIDOCAINE 1% INJ-PF (10 MG/ML) 30 ML SDV INJ ONE (14:31)
[2017-08-06] MEDS ORDERED: CEFTRIAXONE INJ 250 MG VIAL IM ONE (14:31)
[2017-08-06] MEDS ORDERED: AZITHROMYCIN 250 MG TABLET PO ONE (14:31)
[2017-08-06] MEDS ORDERED: METRONIDAZOLE 500 MG TABLET PO ONE (14:33)
[2017-08-06 15:13] VITALS: BP 124/78
[2017-08-06 15:20] LABS: CHLAM PCR DETECTED (NOT DETECT); GON PCR NOT DETECTED (NOT DETECT)
== END 2017-08-06 15:17 | disposition home or self-care (01) ==
LOC: ER 11:58
DX: N76.0 Acute vaginitis (principal); B96.89 Other specified bacterial agents as the cause of diseases classified elsewhere; Z91.018 Allergy to other foods; Z87.891 Personal history of nicotine dependence
CPT/HCPCS: 99283; 96372; 87210; 81025; 81001; 87491; 87591; J3490; J0696

== ENCOUNTER 2017-09-01 07:14 | Emergency (ER) | payer SELFPAY ==
[2017-09-01 09:10] LABS: A TYPE INFLUENZA AG NEGATIVE (NEGATIVE); B INFLUENZA AG NEGATIVE (NEGATIVE)
[2017-09-01] MEDS ORDERED: ACETAMINOPHEN 325 MG TABLET PO ONE (09:18)
[2017-09-01] MEDS ORDERED: PSEUDOEPHEDRINE HCL 30 MG TABLET PO ONE (09:18)
--- NOTE | 2017-09-01 09:18 | ER Document Report ---
ED Flu Like - General Chief Complaint: Flu Symptoms Stated Complaint: FEVER Time Seen by Provider: 09/01/17 08:49 Notes: Patient is a 19-year-old female presents emergency department with a chief complaint of postnasal drip, nonproductive cough and intermittent low-grade fevers. 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 Otherwise healthy female. Denies any headache , sore throat, difficulty swallowing, chest pain nausea, vomiting, abdominal pain, diarrhea, constipation TRAVEL OUTSIDE OF THE [place] IN LAST 30 DAYS: No - Related Data Allergies/Adverse Reactions: Coconut * [Coconut] Allergy (Verified 09/01/17 08:06) Past Medical History - Social History Smoking Status: Unknown if Ever Smoked Chew tobacco use (# tins/day): No Frequency of alcohol use: None Drug Abuse: None Family History: Arthritis, COPD, DM, Hyperlipidemia, Hypertension, Thyroid Disfunction. denies: CAD, CVA, Malignancy Patient has suicidal ideation: No Patient has homicidal ideation: No - Past Medical History Cardiac Medical History: Denies: Hx Heart Attack, Hx Hypertension Pulmonary Medical History: Denies: Hx Asthma Neurological Medical History: Denies: Hx Seizures Renal/ Medical History: Reports: Hx Ovarian Cysts. Denies: Hx Peritoneal Dialysis GI Medical History: Reports: Hx Gastroesophageal Reflux Disease. Denies: Hx Hiatal Hernia, Hx Ulcer Psychiatric Medical History: Reports: Hx Anxiety Past Surgical History: Reports: Hx Section - 2, Hx Tubal Ligation. Denies: Hx Mastectomy, Hx Open Heart Surgery - Immunizations Hx Diphtheria, Pertussis, Tetanus Vaccination: Yes Review of Systems - Review of Systems Constitutional: See HPI EENT: See HPI Cardiovascular: No symptoms reported Respiratory: See HPI Gastrointestinal: No symptoms reported Musculoskeletal: See HPI Neurological/Psychological: No symptoms reported -: Yes All other systems reviewed and negative Physical Exam - Vital signs Vitals: Temp Pulse Resp BP Pulse Ox 98.6 F 65 16 112/69 98 09/01/17 07:23 09/01/17 07:23 09/01/17 07:23 09/01/17 07:23 09/01/17 07:23 - Notes Notes: PHYSICAL EXAM GENERAL: Alert, interacts well. HEENT: NCAT, pale conjunctiva, extraocular movements intact, pupils PERRL. external ear normal, no evidence of external auditory canal tenderness, blood/ drainage, cerumen impaction, TM intact without evidence of effusion, bulging, injection, MMM, Uvula midline. Airway patent. No evidence of tonsillar enlargement, peritonsillar abscess, retropharyngeal abscess. LUNGS: Clear to auscultation bilaterally, no wheezes, rales, or rhonchi. No respiratory distress. HEART: Regular rate and rhythm. No murmurs, gallops, or rubs. EXTREMITIES: Moves all 4 extremities spontaneously. No edema, radial and dorsalis pedis pulses 2/4 bilaterally. No cyanosis. NEUROLOGICAL: Alert and oriented x4. Normal speech. PSYCH: Normal affect, normal mood. SKIN: Warm, dry, normal turgor. No rashes or lesions noted. Course - Re-evaluation Re-evalutation: 09/01/17 10:16 patient is a 27-year-old female is hemodynamically stable, no acute distress and afebrile. Presentation is most consistent with a viral upper respiratory infection. Patient is overall well appearance, vitals within normal limits, well-hydrated. Patient denies any headache, neck pain, and has no evidence of meningismus on examination. Lungs are clear bilaterally. No evidence of respiratory distress. Based on clinical exam and history, I do not suspect an acute pneumonia, meningitis, strep pharyngitis, or an acute encephalitis. No laboratory or imaging testing is indicated at this time. Will discharge patient with return precautions and followup recommendations. They are in agreement this plan have verbalized understanding return precautions. - Vital Signs Vital signs: Temp Pulse Resp BP Pulse Ox 98.6 F 65 16 112/69 98 09/01/17 07:23 09/01/17 07:23 09/01/17 07:23 09/01/17 07:23 09/01/17 07:23 - Diagnostic Test Radiology reviewed: Image reviewed, Reports reviewed Discharge - Discharge Clinical Impression: Post-nasal drainage Condition: Good Disposition: HOME, SELF-CARE Additional Instructions: Your symptoms are most likely due to a viral infection it should resolve over the next 7-14 days. You should take [id number] guanfacine per bottle instructions to help thin the mucus. For nasal congestion: I would recommend that you get [id number] oxymetazoline also known is afrin. Use only per bottle instructions and be sure to never use this for more than 3 days if you can develop severe rebound congestion. You may also use tylenol or ibuprofen as needed for aches and thorat discomfort. Please be sure to drink plenty of fluids and get rest. Return to the emergency department he began having difficulty breathing, chest pain, persistent vomiting, or any other symptoms that are concerning to you.
--- NOTE | 2017-09-01 10:04 | RADIOLOGY REPORT (SQ) ---
EXAM DESCRIPTION: CHEST PA/LAT COMPLETED DATE/TIME: 09/01/2017 9:57 am REASON FOR STUDY: cough COMPARISON: Two-view chest 11/05/2016, 02/20/2015 EXAM PARAMETERS: NUMBER OF VIEWS: two views TECHNIQUE: Digital Frontal and Lateral radiographic views of the chest acquired. RADIATION DOSE: NA LIMITATIONS: none FINDINGS: LUNGS AND PLEURA: No opacities, masses or pneumothorax. No pleural effusion. MEDIASTINUM AND HILAR STRUCTURES: No masses or contour abnormalities. HEART AND VASCULAR STRUCTURES: Heart normal size. No evidence for failure. BONES: No acute findings. HARDWARE: None in the chest. OTHER: No other significant finding. IMPRESSION: NO SIGNIFICANT RADIOGRAPHIC FINDING IN THE CHEST. TECHNICAL DOCUMENTATION: JOB ID: [id number] [employer]- All Rights Reserved
[2017-09-01 10:32] VITALS: BP 119/79
== END 2017-09-01 10:32 | disposition home or self-care (01) ==
LOC: ER 07:14
DX: R09.82 Postnasal drip (principal); R05 Cough; Z91.018 Allergy to other foods
CPT/HCPCS: 71046; 87804; 99283

== ENCOUNTER 2019-04-30 17:50 | Emergency (ER) | payer SELFPAY ==
--- NOTE | 2019-04-30 20:01 | ER Document Report ---
ED Medical Screen (RME) - General Mode of Arrival: Ambulatory Information source: Patient TRAVEL OUTSIDE OF THE [place] IN LAST 30 DAYS: No - HPI Onset: This morning Onset/Duration: Gradual, Worse Quality of pain: Sharp, Stabbing Associated Symptoms: Chills, Fever, Sore throat Exacerbated by: Food Relieved by: Denies Similar symptoms previously: No Recently seen / treated by doctor: Yes - Related Data Smoking: Non-smoker Frequency of alcohol use: None Drug Abuse: None <CINTHYA MUÑOZ - Last Filed: 04/30/19 23:36> <JILL SAUCEDO - Last Filed: 05/01/19 02:53> - General Chief Complaint: Sore Throat Stated Complaint: COUGH Time Seen by Provider: 04/30/19 19:54 Primary Care Provider: JENNIFER GRUBBS MD [ACTIVE STAFF] - Follow up as needed Notes: 28-year-old female presented to ED for sore throat that started this morning. She states she has had some low-grade fever and chills today. She states she was treated with antibiotics for a sinus infection and the antibiotics are completed and then she developed a sore throat today. She is alert oriented respirations regular nonlabored speaking in full sentences. On observation she does have a very enlarged right tonsil with possible tonsillar abscess abscess. I have spoken with Dr. saucedo who will come and examine her throat for me. (CINTHYA MUÑOZ) - Related Data Allergies/Adverse Reactions: Coconut * [Coconut] Allergy (Verified 10/31/18 11:10) Past Medical History - General Information source: Patient - Social History Cigarette use (# per day): No Chew tobacco use (# tins/day): No Frequency of alcohol use: None Drug Abuse: None Lives with: Family - Past Medical History Cardiac Medical History: Reports: None Pulmonary Medical History: Reports: None EENT Medical History: Reports: None Neurological Medical History: Reports: None. Denies: Hx Seizures Endocrine Medical History: Reports: None Renal/ Medical History: Reports: Hx Ovarian Cysts Malignancy Medical History: Reports: None GI Medical History: Reports: Hx Gastroesophageal Reflux Disease Musculoskeltal Medical History: Reports None Skin Medical History: Reports None Psychiatric Medical History: Reports: Hx Anxiety Traumatic Medical History: Reports: None Infectious Medical History: Reports: None. Denies: Hx C-Diff, Hx Hepatitis, Hx HIV, Hx MRSA, Hx VRE, Other Past Surgical History: Reports: Hx Section - 2, Hx Nose Surgery, Hx Tubal Ligation. Denies: Hx Mastectomy, Hx Open Heart Surgery - Immunizations Immunizations up to date: Yes Hx Diphtheria, Pertussis, Tetanus Vaccination: Yes <CINTHYA MUÑOZ - Last Filed: 04/30/19 23:36> Review of Systems - Review of Systems Constitutional: No symptoms reported EENT: Throat pain Cardiovascular: No symptoms reported Respiratory: No symptoms reported Gastrointestinal: No symptoms reported Genitourinary: No symptoms reported Female Genitourinary: No symptoms reported Musculoskeletal: No symptoms reported Skin: No symptoms reported Hematologic/Lymphatic: No symptoms reported Neurological/Psychological: No symptoms reported -: Yes All other systems reviewed and negative <CINTHYA MUÑOZ - Last Filed: 04/30/19 23:36> Physical Exam - Vital signs Interpretation: Normal - General General appearance: Appears well, Alert - HEENT Head: Normocephalic, Atraumatic Eyes: Normal Pupils: PERRL Ears: Normal External canal: Normal Tympanic membrane: Normal Sinus: Normal Nasal: Epistaxis, Swelling Mouth/Lips: Normal Mucous membranes: Normal Pharynx: Erythema, Exudate, Peritonsillar abscess - Respiratory Respiratory status: No respiratory distress Chest status: Nontender Breath sounds: Normal Chest palpation: Normal - Cardiovascular Rhythm: Regular Heart sounds: Normal auscultation Murmur: No - Abdominal Inspection: Normal Distension: No distension Bowel sounds: Normal Tenderness: Nontender Organomegaly: No organomegaly - Back Back: Normal, Nontender - Extremities General upper extremity: Normal inspection, Nontender, Normal color, Normal ROM, Normal temperature General lower extremity: Normal inspection, Nontender, Normal color, Normal ROM, Normal temperature, Normal weight bearing. No: Marlen's sign - Neurological Neuro grossly intact: Yes Cognition: Normal Orientation: AAOx4 Aj Coma Scale Eye Opening: Spontaneous [place] Coma Scale Verbal: Oriented Aj Coma Scale Motor: Obeys Commands Aj Coma Scale Total: 15 Speech: Normal Motor strength normal: LUE, RUE, LLE, RLE Sensory: Normal - Psychological Associated symptoms: Normal affect, Normal mood - Skin Skin Temperature: Warm Skin Moisture: Dry Skin Color: Normal <CINTHYA MUÑOZ - Last Filed: 04/30/19 23:36> - Vital signs Vitals: Temp Pulse Resp BP Pulse Ox 98.5 F 67 16 137/69 H 100 04/30/19 18:39 04/30/19 18:39 04/30/19 18:39 04/30/19 18:39 04/30/19 18:39 Course - Laboratory Result Diagrams: 04/30/19 21:05 04/30/19 21:05 <CINTHYA MUÑOZ - Last Filed: 04/30/19 23:36> - Laboratory Result Diagrams: 04/30/19 21:05 04/30/19 21:05 <JILL SAUCEDO - Last Filed: 05/01/19 02:53> - Re-evaluation Re-evalutation: 05/01/19 02:52 I did personally see and examined this patient in conjunction with the nurse practitioner Cinthya Muñoz. Patient is complaining of a sore throat for the past several days worsening today and causes pain when she swallows but she is not having any choking sensations when she swallows. Physical examination does reveal enlarged tonsils bilaterally with erythema and exudates, right tonsil is somewhat larger than the left tonsil, they are not kissing and there is no deviation of the uvula. We are both concerned for the possibility of a peritonsillar abscess so CT scan with contrast was undertaken, it did not show any evidence of abscess. Patient tested positive for strep, patient was treated with clindamycin initially when we suspected a peritonsillar abscess and then transitioned to penicillin. Discharged home. (JILL SAUCEDO) - Vital Signs Vital signs: Temp Pulse Resp BP Pulse Ox 98.4 F 78 16 115/73 99 05/01/19 00:10 05/01/19 00:10 05/01/19 00:10 05/01/19 00:10 05/01/19 00:10 - Laboratory Laboratory results interpreted by me: 04/30/19 04/30/19 21:05 22:20 WBC 16.4 H Lymph % (Auto) 7.6 L Absolute Neuts (auto) 14.0 H Seg Neutrophils % 84.9 H PT 16.2 H Doctor's Discharge <CINTHYA MUÑOZ - Last Filed: 04/30/19 23:36> <JILL SAUCEDO - Last Filed: 05/01/19 02:53> - Discharge Clinical Impression: Strep pharyngitis Condition: Stable Disposition: HOME, SELF-CARE Instructions: Family Physicians / Practices Additional Instructions: STREP THROAT: Your sore throat is due to the streptococcus germ (strep throat). Strep throat usually makes you feel quite ill with fever and aches, headache, swollen sore throat, and tender bumps under the angles of the jaw. Strep throat requires antibiotic treatment. Although the sore throat may go away by itself, complications such as rheumatic fever, kidney disease, or throat abscess can occur. We usually prescribe antibiotics by mouth. Be sure to take the medicine until it's gone. If you stop early, the strep may come back. If you are vomiting, are severely ill, or can't remember to take pills, we can give you an antibiotic shot. Take acetaminophen or ibuprofen for pain and fever. Sip frequent clear liquids, or use popsicles or ice chips. Anesthetic sprays or lozenges may help. Make sure the air in the room is not too dry. Avoid using decongestants or antihistamines. Call the doctor if there is no improvement in three days, or if you have difficulty breathing, increasing throat pain, high fever, rash, or frequent vomiting. Penicillins The antibiotic you have received is a member of the penicillin family. This is a very useful class of antibiotics. The particular type of antibiotic chosen for you was determined by the nature of your problem. Penicillins are absorbed best when taken on an empty stomach, and should be taken either a half hour before or two hours after a meal. Some newer medicines of the penicillin class are better taken with food -- if this is the case, the pharmacist will label the medicine to alert you. Penicillins usually have no side effects. However, allergy to penicillins is common. If you have had an allergic reaction to any drug of the penicillin family, you should never take any other penicillin. Notify your doctor at once if you develop hives, itching, swelling, faintness, or shortness of breath. Less serious side effects can include nausea or diarrhea. STEROID MEDICATION: You have been given a medicine of the cortisone/steroid class. This medication is used to control inflammation or allergy. It is usually only given for a short period of time, until the acute process subsides. There are usually no side effects from short-term use of cortisone-like medications. Some persons feel an increased sense of well-being and are not sleepy at bedtime. Long-term use of cortisone medications is best avoided, unless required for a severe condition. If your condition does not remit, or relapses after the course of corticosteroid medication, you should consult your physician. Toradol Injection You have been given an injection of ketorolac tromethamine (Toradol). This is an excellent, safe drug for pain control. It also has potent antiinflammatory action. You should have significant pain relief within about one hour. Toradol is not addicting and is non-sedating. It does not interfere with driving or work. Call or return if you develop itching, hives, shortness of breath, or rash. Clindamycin You have been given a prescription for the antibiotic clindamycin. It is often prescribed for infections in the mouth, such as dental infections or abscesses, and for skin infections due to MRSA. It's important that you take all the medication, unless instructed otherwise by your physician. Failure to complete the entire course can result in relapse of your condition. Common side effects of antibiotics include nausea, intestinal cramping, or diarrhea. Women may develop vaginal yeast infections, and babies can get yeast (thrush) in the mouth following the use of antibiotics. Contact your physician if you develop significant side effects from this medication. Allergy to this antibiotic can result in hives, wheezing, faintness, or itching. If symptoms of allergy occur, stop the medication and call the doctor. FOLLOW-UP CARE: If you have been referred to a physician for follow-up care, call the physicians office for an appointment as you were instructed or within the next two days. If you experience worsening or a significant change in your symptoms, notify the physician immediately or return to the Emergency Department at any time for re-evaluation. Forms: Elevated Blood Pressure, Return to Work Referrals: JENNIFER GRUBBS MD [ACTIVE STAFF] - Follow up as needed
[2019-04-30] MEDS ORDERED: DEXAMETHASONE SOD PHOS INJ 10 MG/1 ML VIAL IV ONE (20:27)
[2019-04-30] MEDS ORDERED: KETOROLAC TROMETHAMINE INJ/PF 30 MG/1 ML SDV IV ONE (20:27)
[2019-04-30] MEDS ORDERED: CLINDAMYCIN 600 MG/D5W RTU 600 MG/50 ML RTUPB IV ONE (20:30)
[2019-04-30 21:48] LABS: ABSOLUTE EOSINOPHILS # (AUTO) 0.2 10^3/uL (0.0-0.6); ABSOLUTE LYMPHOCYTES (AUTO) 1.2 10^3/uL (0.5-4.7); BASOPHILS % (AUTO) 0.2 % (0-2); EOSINOPHILS % (AUTO) 1.1 % (0-6); HEMATOCRIT 39.1 % (36.0-47.0); HEMOGLOBIN 13.1 g/dL (12.0-15.5); LYMPHOCYTES % (AUTO) 7.6 % (13-45); MEAN CORPUSCULAR HEMOGLOBIN 29.1 pg (27.0-33.4); MEAN CORPUSCULAR HGB CONC 33.6 g/dL (32.0-36.0); MEAN CORPUSCULAR VOLUME 87 fl (80-97); MONOCYTES % (AUTO) 6.2 % (3-13); PLATELET COUNT 198 10^3/uL (150-450); RED BLOOD COUNT 4.51 10^6/uL (3.72-5.28); RED CELL DISTRIBUTION WIDTH 13.4 % (11.5-14.0); SEGMENTED NEUTROPHILS % (AUTO) 84.9 % (42-78); TOTAL CELLS COUNTED % (AUTO) 100 %; WHITE BLOOD COUNT 16.4 10^3/uL (4.0-10.5)
[2019-04-30 22:04] LABS: ALBUMIN 4.3 g/dL (3.5-5.0); ALKALINE PHOSPHATASE 60 U/L (38-126); ANION GAP 10 (5-19); ASPARTATE AMINO TRANSFERASE 23 U/L (14-36); BILIRUBIN,DIRECT 0.1 mg/dL (0.0-0.4); BILIRUBIN,TOTAL 0.3 mg/dL (0.2-1.3); BLOOD UREA NITROGEN 11 mg/dL (7-20); CALCIUM 9.6 mg/dL (8.4-10.2); CARBON DIOXIDE 27 mmol/L (22-30); CHLORIDE 101 mmol/L (98-107); GLUCOSE 92 mg/dL (75-110); POTASSIUM 3.8 mmol/L (3.6-5.0); TOTAL PROTEIN 7.5 g/dL (6.3-8.2)
[2019-04-30] MEDS ORDERED: CLINDAMYCIN PHOSPHATE INJ 300 MG/2 ML SDV ONE (22:24)
[2019-04-30 22:50] LABS: INTERNATIONAL RATION (INR) 1.29; PROTHROMBIN TIME 16.2 SEC (11.4-15.4)
[2019-04-30 22:51] LABS: PARTIAL THROMBOPLASTIN TIME 31.7 SEC (23.5-35.8)
--- NOTE | 2019-04-30 23:14 | RADIOLOGY REPORT (SQ) ---
EXAM DESCRIPTION: CT neck with contrast CLINICAL HISTORY: 28 years Female, sore throat possible peritonsillar abscess COMPARISON: None. TECHNIQUE: Axial images of the neck were performed utilizing intravenous contrast, with sagittal and coronal reformatted images. This exam was performed according to our departmental dose-optimization program which includes use of Automated Exposure Control, adjustment of the mA and/or kV according to patient size and/or use of iterative reconstruction technique. FINDINGS: No evidence of peritonsillar abscess. The epiglottis appears normal. The airway is patent. There is no significant cervical adenopathy. IMPRESSION: No acute finding.
[2019-04-30] MEDS ORDERED: PENICILLIN G BENZATHINE 1.2 MILLION UNIT/2 ML DISP.SYRIN IM ONE (23:36)
[2019-05-01 00:18] VITALS: BP 115/73
== END 2019-05-01 00:18 | disposition home or self-care (01) ==
LOC: ER 17:50
DX: J02.0 Streptococcal pharyngitis (principal); R05 Cough; R50.9 Fever, unspecified
CPT/HCPCS: 36415; 87040; 87880; 85025; 85610; 85730; 80053; 70491; J1885; J0561; J1100; 96365; 96366; 96372; 96375; 99283